=== PATIENT | female | born 1940 | race Caucasian/White ===

== ENCOUNTER → 2018-03-20 | Outpatient (CLI) | payer MEDICARE ==
[~2018-03-20] MED LIST: ASPI-757 PO; ASPI81TA94 PO; ATOR40TA24 PO; CITA-145 PO; DULO60CA7 PO; MIL50PT PO; MILN12.52 PO; OMEP-137 PO; OXYB10TA16 PO; OXYB5TAB86 PO; ROSU20TA23 PO
[2018-03-20 15:58] LABS: PLATELET COUNT, AUTOMATED 209 K/uL (150-450)
== END ==
LOC: LAB 15:39
PROVIDERS: ATTEND Emergency Medicine
DX: E55.9 Vitamin D deficiency, unspecified (principal); E78.5 Hyperlipidemia, unspecified; R53.83 Other fatigue
CPT/HCPCS: 36415; 82040; 82247; 82306; 82310; 82374; 82435; 82465; 82565; 82947; 83718; 84075; 84132; 84155; 84295; 84443; 84450; 84460; 84478; 84520; 85025

== ENCOUNTER → 2018-03-27 | Outpatient (REF) | payer MEDICARE | LOC: ZZSENDIN 13:11 | PROVIDERS: ATTEND Emergency Medicine | DX: Z12.11 Encounter for screening for malignant neoplasm of colon (principal) | CPT/HCPCS: 82274 ==

== ENCOUNTER → 2018-03-28 | Outpatient (CLI) | payer MEDICARE ==
--- NOTE | 2018-03-28 20:31 | RADIOLOGY IMAGING REPORT ---
FACILITY: [facility] PATIENT NAME: Verito Atkinson : 1940 MR: [id number] V: [id number] EXAM DATE: ORDERING PHYSICIAN: GABRIELLA PARIKH TECHNOLOGIST: Location: [facility] [place] Patient: Verito Atkinson : 1940 Visit/Account:[id number] Date of Sevice: 03/28/2018 DEXA Scan HISTORY: Postmenopausal. COMPARISON: None. LUMBAR SPINE: The bone mineral density (BMD) measured from L1-L4 correlates with a Z-score of -0.5 and a T-score of -2.3 which is compatible with osteopenia as defined by the World Health Organization. The correspon ding risk of fracture in the lumbar spine is increased 4-6 times compared with a young adult referenc e population. HIP: Bone mineral density (BMD) measured in the left femoral neck region correlates with a Z-score of -1.1 and a T-score of -3.1 which is compatible with osteoporosis as defined by the World Health Organizat ion. The corresponding risk of fracture in the hip is increased 8-12 times compared with a young kevin lt reference population. Bone mineral density (BMD) measured in the left Femoral Neck region measures 0.609 g/cm2. IMPRESSION: 1. Lumbar spine: Compatible with osteopenia. 2. Left Femoral Neck: Compatible with osteoporosis. 3. Left Femoral Neck: Bone Mineral Density is 0.609 g/cm2 The next DEXA scan of this patient should include the following sites: L1-L4 and left hip. FRAX? WHO Fracture Risk Assessment Tool link: <http://www.shef.ac.uk/FRAX/tool.jsp?locationValue=9> PLEASE NOTE: 1) The World Health Organization defines low BMD as follows: T-score Normal > -1 Osteopenia < -1 and > -2.5 Osteoporosis < -2.5 without fractures Established osteoporosis < -2.5 with fractures 2) In general, you may wish to consider: Diagnosis Treatment Follow-up DEXA Normal BMD Prevention 2-3 years Osteopenia Prevention/therapy 1-2 years Osteoporosis Therapy Yearly 3) Fracture risk estimated from the T-score is more accurate for vertebral fractures (often spontane ous) than for hip fractures. Report Dictated By: Glenna Mcintosh MD at 03/28/2018 8:26 PM Report E-Signed By: Glenna Mcintosh MD at 03/28/2018 8:28 PM WSN:[id number]
--- NOTE | 2018-03-29 14:58 | RADIOLOGY IMAGING REPORT ---
FACILITY: [facility] PATIENT NAME: ANDREY CABRAL : [id number] MR: [id number] V: [id number] EXAM DATE: [id number] ORDERING PHYSICIAN: GABRIELLA PARIKH TECHNOLOGIST: Carley Duque PROCEDURE:BILATERAL DIGITAL SCREENING MAMMOGRAM WITH CAD ASSISTED INTERPRETATION & 3D TOMOSYNTHESIS COMPARISON:None. INDICATIONS:screening FINDINGS: Breast tissue demonstrates scattered fibroglandular tissue elements. Vascular calcifications are seen in both Right and Left breasts. There is no suspicious mass, calcification, or architectural distortion. DIAGNOSTIC CATEGORY 2--BENIGN FINDING. RECOMMENDATIONS: ROUTINE MAMMOGRAM AND CLINICAL EVALUATION. IMPRESSION: BIRADS 2: Benign finding. No mammographic evidence for malignancy. Dictated by: Justino Avila M.D. on 03/29/2018 at 11:34 Transcribed by: GAL on 03/29/2018 at 13:19 Approved by: Justino Avila M.D. on 03/29/2018 at 14:57 [facility]
== END ==
LOC: MAMO 01:56
PROVIDERS: ATTEND Emergency Medicine
DX: Z13.820 Encounter for screening for osteoporosis (principal); Z12.31 Encounter for screening mammogram for malignant neoplasm of breast; M81.0 Age-related osteoporosis without current pathological fracture; M85.88 Other specified disorders of bone density and structure, other site; Z78.0 Asymptomatic menopausal state
CPT/HCPCS: 77063; 77067; 77080

== ENCOUNTER 2018-07-27 23:11 | Emergency (ER) | payer MEDICARE ==
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
[2018-07-27] MEDS ORDERED: NS(*) 0.9% 1000 ML BAG 1,000 ML IV ONE (23:24)
[2018-07-27] MEDS ORDERED: ONDANSETRON 4 MG/2 ML VIAL IVP ONE (23:25)
[2018-07-27] MEDS ORDERED: DIPHENOX/ATROPINE 2.5-0.025MG PO ONE (23:25)
[2018-07-27 23:37] LABS: PLATELET COUNT, AUTOMATED 292 K/uL (150-450)
[2018-07-28] MEDS ORDERED: ACETAMINOPHEN 650 MG SUPP PR ONE
[2018-07-28] MEDS ORDERED: ACETAMINOPHEN 325 MG TAB PO ONE (00:05)
[2018-07-28] MEDS ORDERED: NS(*) 0.9% 1000 ML BAG 1,000 ML IV ONE (00:15)
[2018-07-28] MEDS ORDERED: CITALOPRAM HYDROBROM 20 MG TAB PO ONE (00:15)
[2018-07-28 00:30] VITALS: BP 140/64
[2018-07-28] MEDS ORDERED: ONDA4TAB97 PO (00:47)
[2018-07-28] MEDS ORDERED: DIPH-1 PO (00:47)
[2018-07-28] MEDS ORDERED: DIPHENOX/ATROPINE 2.5-0.025MG PO ONE (00:55)
[2018-07-28] MEDS ORDERED: ONDANSETRON 4 MG ODT TH SL ONE (00:55)
== END 2018-07-28 01:28 | disposition home or self-care (01) ==
LOC: ER 23:24
DX: R11.2 Nausea with vomiting, unspecified (principal)
CPT/HCPCS: 83690; 85025; 86677; 96361; 96374; 99284; A9270; J2405; J7030; Q0162; 82040; 82247; 82310; 82374; 82435; 82565; 82947; 84075; 84132; 84155; 84295; 84450; 84460; 84520; S0119

== ENCOUNTER → 2018-12-03 | Outpatient (CLI) | payer MEDICARE ==
[~2018-12-03] MED LIST changes: +CHOL200018 PO; +CITA-141 PO; +CYAN20003 PO; +DIPH-1 PO; +ONDA4TAB97 PO; -ROSU20TA23 PO; +ROSU20TA24 PO; +SULF-198 PO
[2018-12-03 09:32] LABS: PLATELET COUNT, AUTOMATED 237 K/uL (150-450)
--- NOTE | 2018-12-03 11:05 | RADIOLOGY IMAGING REPORT ---
FACILITY: [facility] [place] PATIENT NAME: Verito Atkinson : 1940 MR: [id number] V: [id number] EXAM DATE: ORDERING PHYSICIAN: GABRIELLA PARIKH TECHNOLOGIST: Location: [facility] Patient: Verito Atkinson : 1940 Visit/Account:[id number] Date of Sevice: 12/03/2018 Exam type: CHEST PA LAT History: Cough for a month Comparison: None. Findings: The lungs are free of acute effusions, infiltrates or edema. Cardiac silhouette is normal in size. The trachea is in midline. There are spondylotic changes of the thoracic spine.. There are extensiv e degenerative changes of the left shoulder IMPRESSION: 1. No acute cardiac pulmonary process is seen Report Dictated By: Mkiala Perkins MD at 12/03/2018 10:49 AM Report E-Signed By: Mikala Perkins MD at 12/03/2018 11:00 AM WSN:[id number]
== END ==
LOC: LAB 09:07
PROVIDERS: ATTEND Emergency Medicine
DX: E53.8 Deficiency of other specified B group vitamins (principal); R41.3 Other amnesia; M81.0 Age-related osteoporosis without current pathological fracture; F41.9 Anxiety disorder, unspecified; E55.9 Vitamin D deficiency, unspecified; N39.0 Urinary tract infection, site not specified; B96.89 Other specified bacterial agents as the cause of diseases classified elsewhere
CPT/HCPCS: 36415; 71046; 81001; 82040; 82247; 82306; 82310; 82374; 82435; 82565; 82607; 82947; 84075; 84132; 84155; 84295; 84443; 84450; 84460; 84520; 85007; 85027; 87077; 87088; 87186